=== PATIENT | female | born 1975 | race Caucasian/White ===

== ENCOUNTER 2021-02-27 00:32 | Emergency (ER) | payer MEDICAID, SELFPAY ==
[2021-02-27 00:38] VITALS: BP 183/85; PULSE 76; RESP 16; TEMP 36.5; O2SAT 98; BMI 53.1
[2021-02-27 01:17] LABS: Rapid Strep A Test Negative (Negative)
[2021-02-27 01:17] LABS: SARS Covid-2 Antigen Negative (Negative)
--- NOTE | 2021-02-27 01:21 | ED_ITS ---
HPI - SOB/Dyspnea General: Chief Complaint: Shortness of Breath/Dyspnea Stated Complaint: Throat Closing\Ran out of Medicine Time Seen by Provider: 02/27/21 01:21 History of Present Illness: HPI Narrative: 45-year-old female comes in today with complaints of sore throat, sinus pressure, left ear ache, and chest congestion. Patient has been ill since last Wednesday and Wednesday. Patient was treated with prednisone for 5 days but continues to have symptoms that seem to be worsening. Patient has a history of asthma and at first thought it was allergies or asthma related symptoms. Patient appears mildly unwell but not toxic. Review of Systems General: Reports: 10 or more systems reviewed and unremarkable except in HPI and below Const: Reports: malaise ENMT: Reports: throat pain and ear or mastoid pain Resp: Reports: non-productive cough Physical Exam Const: COMMON NORMALS: no acute distress and patient oriented x3 GENERAL APPEARANCE: cooperative HENMT: COMMON NORMALS: normocephalic and Normal external nose present HEAD & SCALP: normal to inspection and normocephalic NOSE: Normal external nose present TYMPANIC MEMBRANE: TM normal on the right and TM abnormal TM laterality: left Details: erythematous, fluid behind TM and retracted MOUTH: Normal oral and palatal mucosa present THROAT: posterior oropharynx normal Eye: GENERAL EYE: appearance normal, both eyes and all related structures Neck/C-Spine: COMMON NORMALS: full ROM Lymph: LYMPHATIC: no lymphadenopathy noted Chest: COMMONS NORMALS: normal inspection of the chest Resp: COMMON NORMALS: normal respiratory effort EFFORT & INSPECTION: Yes able to speak in complete sentences AUSCULTATION: rhonchi Cardio: COMMON NORMALS: regular rate and regular rhythm RATE: regular rate RHYTHM: regular rhythm GI: COMMON NORMALS: non-tender Back/Pelvis: COMMON NORMALS: thoracic and lumbar spine normal to inspection Extremity: COMMON NORMALS: normal to inspection Neuro: COMMON NORMALS: patient oriented x3 and moves all extremities Psych: COMMON NORMALS: mental status grossly normal and cooperative Skin: COMMON NORMALS: no rashes or lesions noted GENERAL SKIN EXAM: no rashes or lesions noted Course Vital Signs: Vital signs: Vital Signs Temperature 97.7 F 02/27/21 00:38 Pulse Rate 76 02/27/21 00:38 Respiratory Rate 16 02/27/21 00:38 Blood Pressure 183/85 02/27/21 00:38 Pulse Oximetry 98 09/09/21 00:38 MDM - SOB/Dyspnea MDM Narrative: Medical decision making narrative: Patient comes in today with complaints of cough, sore throat, left ear pain. On exam patient has some mild facial swelling on the left side, nasal congestion, posterior pharynx shows some erythema with mild enlargement of the left tonsil, along with retraction and fluid behind the left TM. Auscultation of lung sounds notes rhonchi. Differential diagnosis includes but not limited to upper respiratory infection, strep pharyngitis, viral syndrome, bronchitis, rhinosinusitis bacterial. Exam suggests a rhinosinusitis with bronchitis. We will give patient 1 dose of dexamethasone 10 mg and 1 Augmentin to start antibiotic therapy. Patient will be continue with Augmentin twice a day for 7 days. Along with prednisone 40 mg daily for 5 days. I encourage plenty of fluids continuation of albuterol as needed. And follow-up with primary care or return to the ER for worsening symptoms. Patient reported understanding and agreed to plan. Lab Data: Labs: Lab Results 02/27/21 02/27/21 Range/Units 00:50 00:53 SARS-CoV-2 Ag (Rap id) Negative (Negative) Group A Strep Rapi d Negative (Negative) Discharge Plan Discharge Patient Disposition: Home Clinical Impression: Acute rhinosinusitis, Bronchitis Pharyngitis Qualifiers: Pharyngitis/tonsillitis etiology: unspecified etiology Qualified Code(s): J02.9 - Acute pharyngitis, unspecified Condition: Stable Prescriptions: New Augmentin 875-125 mg tablet 1 tab PO BID Qty: 14 RF: 0 prednisone 20 mg tablet 20 mg PO BID 5 Days Qty: 10 RF: 0 Discharge Orders: Discharge ED (Routine); Ordered 02/27/21 Ordered By: Vernon Sapp Discharge Diet: Usual diet Discharge Activity: Increase activity as tolerated Patient Instructions: Pharyngitis (ED), Opioid Safety Activity Restrictions/Additional Instructions: Drink plenty of fluids. Take medication as directed. Use acetaminophen or ibuprofen for further pain relief. Follow-up with primary care as needed. Return to the ER for new concerns. Coding Level of Care Code ED Bulking Machine Operator for Christopher Resendiz
[2021-02-27] MEDS: amoxicillin-clav 875-125 mg Tablet 1 TAB PO (01:28)
[2021-02-27] MEDS: dexamethasone 4 mg Tablet 10 MG PO (01:28)
[2021-02-27 01:40] VITALS: BP 176/98; PULSE 75; RESP 16; O2SAT 98
== END 2021-02-27 01:41 | disposition home or self-care (01) ==
PROVIDERS: Emergency Medicine; Emergency Provider Nurse Practitioner Family
DX: J02.9 Acute pharyngitis, unspecified (principal); J01.90 Acute sinusitis, unspecified; J40 Bronchitis, not specified as acute or chronic; Z20.822 Contact with and (suspected) exposure to COVID-19
CPT/HCPCS: 87081; 87426; 87880; 99283; J8540

== ENCOUNTER 2023-11-26 17:30 | Emergency (ER) | payer MEDICAID, SELFPAY ==
[2023-11-26 17:32] VITALS: BP 124/79; PULSE 97; RESP 16; TEMP 36.5; O2SAT 97; BMI 59.3
--- NOTE | 2023-11-26 17:54 | ED_ITS ---
HPI - Extremity Problem General: Chief complaint: Extremity Problem,Nontraumatic Stated complaint: foot redness and itching Time Seen by Provider: 11/26/23 17:40 Source: patient Mode of arrival: ambulatory Limitations: no limitations History of Present Illness: Patient is a 48-year-old female presenting to the emergency department complaining of acute on chronic bilateral lower extremity edema onset 1 day. Patient notes that she has had problems with swelling since her teenage years, and that it has only worsened since she put on a significant mount of weight last year. However, she has never had issues with redness and paresthesias distally, which is what she is reporting now. She notes that she has missed her last couple of doses of Lasix as well as she has not been wearing her compressi on stockings. She also notes that she was in the car for approximately 5 hours yesterday, and onset of her symptoms began shortly after. She states she is newly on oxygen due to some sleep apnea. Currently she has not had any chest pain, breathing difficulties, palpitations, or other concerning symptoms. MD Complaint: extremity swelling Onset (ago): day(s) Pain Consistency: constant Radiation: proximal Associated symptoms: Deny chest pain, fever(s) or rash Context: recent travel Review of Systems General: Reports: 10 or more systems reviewed and unremarkable except in HPI and below Const: Denies: fever(s), chills or fatigue Eyes: Denies: change in vision ENMT: Denies: throat pain, ear or mastoid pain or nasal discharge Card: Reports: edema (Associated with erythema and paresthesias); Denies: chest pain, palpitations, swelling of feet/ankles or lightheadedness Resp: Denies: dyspnea, productive cough or wheezing GI: Denies: abdominal pain, nausea, vomiting, diarrhea or constipation : Denies: flank pain, difficulty voiding, dysuria or urinary frequency Musc: Denies: neck pain, back pain or joint pain Skin/Breast: Denies: rash Neuro: Denies: headache(s), numbness in extremities or weakness in extremities [facility] ED Female Reproductive History: Date of last menstrual period: 10/26/23 Physical Exam Const: COMMON NORMALS: no acute distress, patient oriented x3, no limitations and alert GENERAL APPEARANCE: cooperative and comfortable NUTRITIONAL APPEARANCE: obese morbidly obese ORIENTATION/CONSCIOUSNESS: Yes awake HENMT: COMMON NORMALS: normocephalic and atraumatic HEAD & SCALP: normocephalic and atraumatic Eye: COMMON NORMALS: EOMs intact bilaterally and conjunctivae normal CONJUNCTIVA: Yes conjunctivae normal Neck/C-Spine: COMMON NORMALS: full ROM and no JVD Resp: COMMON NORMALS: normal respiratory effort, No retractions, No use of accessory muscles and clear to auscultation bilaterally AUSCULTATION: clear to auscultation bilaterally Cardio: COMMON NORMALS: no JVD, regular rate, regular rhythm, S1 normal heart sound present, S2 normal heart sound present, No gallops present (Cardio), No clicks present (Cardio), No murmurs present (Cardio) and Peripheral pulses 2+ throughout RATE: regular rate RHYTHM: regular rhythm HEART SOUNDS: S1 normal heart sound present and S2 normal heart sound present PERIPHERAL PULSES: Peripheral pulses 2+ throughout Extremity: NARRATIVE EXTREMITY EXAM: 3+ pitting edema bilaterally longterm up the shins associated with some erythema. She has no calf tenderness and negative Homans' sign bilaterally. Pulses intact and symmetrical bilaterally. Neuro: COMMON NORMALS: patient oriented x3, moves all extremities, no focal motor deficits and no sensory deficits noted SENSORIUM/ORIENTATION: Yes alert Psych: COMMON NORMALS: mental status grossly normal Skin: COMMON NORMALS: no rashes or lesions noted GENERAL SKIN EXAM: no rashes or lesions noted Course Vital Signs: Vital signs: Vital Signs Temperature 97.7 F 11/26/23 17:32 Pulse Rate 97 11/26/23 17:32 Respiratory Rate 16 11/26/23 17:32 Blood Pressure 124/79 11/26/23 17:32 Pulse Oximetry 97 11/26/23 17:32 Oxygen Delivery Me thod Room Air 11/26/23 17:32 MDM - Extremity (Nontraumatic) Medical Decision Making Patient presents for acute on chronic bilateral lower extremity edema, stating she missed her last doses of Lasix and recently was in a car ride for 5+ hours yesterday. Her symptoms began immediately after this. On examination she has 3+ pitting edema longterm up the shins, though no concern for DVT. Clinically, t his appears consistent with dependent edema due to medical noncompliance and recent travel. Her cardiopulmonary auscultation was unremarkable, and no need for labs or imaging at this time. I informed her to double her dose of Lasix tonight at home and to apply compression stockings. I also told her to follow- up with her primary care provider early next week to discuss her ED visit. I did provide strict return precautions to the ED, including if she develops any shortness of breath, chest pain, or feeling that she is going to pass out. Patient understands and will be discharged home at this time. No radiology studies performed this visit Discharge Plan Discharge Patient Disposition: Home Clinical Impression: Dependent edema Condition: Stable Prescriptions: No Action Augmentin 875-125 mg tablet 1 tab PO BID Qty: 14 0RF Discharge Orders: Discharge ED (Routine); Ordered 11/26/23 Ordered By: Dl Asif Discharge Diet: As Directed Discharge Activity: Increase activity as tolerated Patient Instructions: Dependent Edema Activity Restrictions/Additional Instructions: Double your dose of Lasix tonight and wear compression stockings. If you take long trips in the future, please wear compression stockings as discussed. Please follow-up with your primary care next week for reevaluation and to discuss your Lasix dose. Return with any new or worsening symptoms such as shortness of breath or chest pain. Coding Level of Care Code ED Diesel Service Technician for Christopher Resendiz
[2023-11-26 17:59] VITALS: BP 121/82; PULSE 89; RESP 16; TEMP 36.5; O2SAT 98
== END 2023-11-26 17:59 | disposition home or self-care (01) ==
PROVIDERS: Emergency Provider Physician Assistant
DX: R60.0 Localized edema (principal)
CPT/HCPCS: 99281